=== PATIENT | female | born 1990 | race Caucasian/White ===

== ENCOUNTER 2017-08-28 09:48 | Emergency (ER) | payer MEDICAID ==
[~2017-08-28] VITALS: Ht 165.1 cm; Wt 60.0 kg
[2017-08-28] MEDS ORDERED: ALBUTEROL (0.083%) 2.5MG/3ML NEB HHN STA (11:43)
[2017-08-28] MEDS ORDERED: ACETAMINOPHEN 325MG TABLET PO ONE (11:45)
[2017-08-28] MEDS ORDERED: BENZONATATE 100MG CAPSULE PO ONE (11:45)
[2017-08-28 13:27] VITALS: BP 101/62
== END 2017-08-28 13:28 | disposition home or self-care (01) ==
LOC: ER 10:43
DX: B34.9 Viral infection, unspecified (principal)
CPT/HCPCS: 93005; 94640; 99284; J7611; Z7610